=== PATIENT | female | born 1960 | race American Indian/Alaskan Native ===

== ENCOUNTER 2019-02-16 17:43 | Observation (INO) | payer MEDICAID ==
[~2019-02-16] VITALS: Ht 170.2 cm; Wt 98.2 kg
[~2019-02-16 17:43] MED LIST: ASPI-1071 PO; ATOR10TA PO; CLOP75TA35 PO; FURO-149 PO; LANTUS SQ; LISI2.5T2 PO; METO-539 PO; NITR0.4T51 SL
[2019-02-16 18:27] LABS: BASOPHILS # (AUTO) 0.1 X10'3 (0-0.2); EOSINOPHILS # (AUTO) 0.2 X10'3 (0-0.9); EOSINOPHILS % (AUTO) 3.1 % (0-6); HEMATOCRIT 41.6 % (35.0-45.0); HEMOGLOBIN 14.1 g/dl (12.0-16.0); LYMPHOCYTES % (AUTO) 42.5 % (21-51); MEAN CORPUSCULAR HEMOGLOBIN 27.6 PG (27.0-31.0); MEAN CORPUSCULAR HGB CONC 33.9 g/dL (33.0-36.5); MEAN CORPUSCULAR VOLUME 81.4 FL (78-98); MEAN PLATELET VOLUME 8.8 FL (7.4-10.4); MONOCYTES # (AUTO) 0.5 X10'3 (0-0.9); MONOCYTES % (AUTO) 6.5 % (2-12); NEUTROPHILS # (AUTO) 3.3 X10'3 (1.8-7.7); NEUTROPHILS % (AUTO) 46.9 % (42-75); PLATELET COUNT 235 X10'3 (140-440); RED BLOOD COUNT 5.11 X10'6 (4.20-5.60)
[2019-02-16 18:37] LABS: ALANINE AMINOTRANSFERASE 14 U/L (12-78); ALBUMIN 3.7 G/DL (3.4-5.0); ALKALINE PHOSPHATASE 140 IU/L (46-116); ANION GAP 9 (8-16); ASPARTATE AMINO TRANSFERASE 22 U/L (10-37); BILIRUBIN,TOTAL 0.4 MG/DL (0.1-1.0); BLOOD UREA NITROGEN 10 MG/DL (7-18); BUN/CREATININE RATIO 15.4 (6.6-38.0); CALCIUM 9.2 MG/DL (8.5-10.1); CHLORIDE 104 MMOL/L (99-107); CREATININE 0.65 MG/DL (0.40-0.90); GLUCOSE 275 MG/DL (70-104); POTASSIUM 3.6 MMOL/L (3.5-5.1); SODIUM 138 MMOL/L (135-145); TOTAL CARBON DIOXIDE 24.8 MMOL/L (24-32); TOTAL PROTEIN 7.3 G/DL (6.4-8.2); eGFR > 90 ML/MIN
[2019-02-16] MEDS ORDERED: ROSU20TA2 PO (19:03)
[2019-02-16] MEDS ORDERED: EZET10TA13 PO (19:03)
[2019-02-16] MEDS ORDERED: LORazepam 2 mg/ml vial IV ONE (19:05)
[2019-02-16] MEDS ORDERED: CARV-50 PO (19:05)
[2019-02-16] MEDS ORDERED: magnesium 2GM in 50ml NS 50 ML IV PRN (19:35)
[2019-02-16] MEDS ORDERED: magnesium Cl slow-release 64mg tablet PO PRN (19:35)
[2019-02-16] MEDS ORDERED: potassium Cl 40MEQ/NS 500ml 500 ML IV PRN ×2 (19:35)
[2019-02-16] MEDS ORDERED: potassium Cl 20 mEq SR tablet PO PRN ×2 (19:35)
[2019-02-16] MEDS ORDERED: mag hydrox/Alum hydrox/simeth 30ml oral suspension PO PRN (19:35)
[2019-02-16] MEDS ORDERED: nitroGLYCERIN 0.4mg SUBLingual tab SL PRN (19:35)
[2019-02-16] MEDS ORDERED: acetaminophen 325mg tablet PO PRN ×2 (19:35)
[2019-02-16] MEDS ORDERED: magnesium hydroxide 30ml (MOM) UD suspension PO PRN (19:35)
[2019-02-16] MEDS ORDERED: magnesium 4gm in 100ml NS 100 ML IV PRN (19:35)
[2019-02-16] MEDS ORDERED: ondansetron/PF 4mg/2ml inj IV PRN (19:35)
[2019-02-17] MEDS ORDERED: nitroGLYCERIN 0.4mg SUBLingual tab SL PRN (02:00)
[2019-02-17] MEDS ORDERED: regadenoson 0.4mg/5ml syringe IV ONE (02:05)
[2019-02-17] MEDS ORDERED: aminophylline 250mg/10ml inj. IV PRN (02:05)
[2019-02-17] MEDS ORDERED: metoprolol tartrate 1mg/ml inj IV PRN (02:05)
[2019-02-17] MEDS: K and/or MAG REPLACEMENT MC SCH (08:00)
[2019-02-17] MEDS ORDERED: aspirin 325mg tablet, delayed-release (Ecotrin) PO SCH (08:00)
[2019-02-17 08:19] VITALS: BP 125/74
--- NOTE | 2019-02-17 08:39 | NUR ---
Patient accidentally got a food tray with coffee on admit to floor. Pt was aware and npo sign at door. Dr Garcia notified. Would like follow up info
[2019-02-17] MEDS ORDERED: INSU100I31 (09:18)
[2019-02-17] MEDS ORDERED: INSU100I39 (09:18)
[2019-02-17 09:25] LABS: BASOPHILS # (AUTO) 0.1 X10'3 (0-0.2); BASOPHILS % (AUTO) 0.9 % (0-1); EOSINOPHILS # (AUTO) 0.2 X10'3 (0-0.9); EOSINOPHILS % (AUTO) 2.9 % (0-6); HEMATOCRIT 42.4 % (35.0-45.0); HEMOGLOBIN 14.2 g/dl (12.0-16.0); LYMPHOCYTES # (AUTO) 1.8 X10'3 (1.1-4.8); LYMPHOCYTES % (AUTO) 29.3 % (21-51); MEAN CORPUSCULAR HEMOGLOBIN 27.3 PG (27.0-31.0); MEAN CORPUSCULAR HGB CONC 33.5 g/dL (33.0-36.5); MEAN CORPUSCULAR VOLUME 81.3 FL (78-98); MONOCYTES # (AUTO) 0.4 X10'3 (0-0.9); MONOCYTES % (AUTO) 6.5 % (2-12); NEUTROPHILS # (AUTO) 3.6 X10'3 (1.8-7.7); NEUTROPHILS % (AUTO) 60.4 % (42-75); PLATELET COUNT 201 X10'3 (140-440); RED BLOOD COUNT 5.21 X10'6 (4.20-5.60); RED CELL DISTRIBUTION WIDTH 13.8 % (11.5-14.5)
[2019-02-17 10:54] LABS: ALBUMIN 3.5 G/DL (3.4-5.0); ANION GAP 9 (8-16); BLOOD UREA NITROGEN 11 MG/DL (7-18); BUN/CREATININE RATIO 15.5 (6.6-38.0); CALCIUM 8.9 MG/DL (8.5-10.1); CHLORIDE 104 MMOL/L (99-107); CREATININE 0.71 MG/DL (0.40-0.90); GLUCOSE 300 MG/DL (70-104); MAGNESIUM 1.9 MG/DL (1.5-2.4); POTASSIUM 3.8 MMOL/L (3.5-5.1); SODIUM 136 MMOL/L (135-145); TOTAL CARBON DIOXIDE 23.5 MMOL/L (24-32); eGFR 84 ML/MIN
[2019-02-17 11:00] VITALS: BP 108/59
[2019-02-17] MEDS: carVEDilol 12.5mg tablet PO SCH ×2 (13:23→19:51)
[2019-02-17] MEDS: furosemide 40mg tablet PO SCH (13:23)
[2019-02-17] MEDS: clopidogrel 75mg tablet PO SCH (13:23)
[2019-02-17] MEDS: atorvastatin 20mg tablet PO SCH (13:23)
[2019-02-17] MEDS: ezetimibe 10mg tablet PO SCH (13:23)
[2019-02-17] MEDS: enoxaparin 40mg/0.4ml syringe SQ SCH (13:25)
[2019-02-17] MEDS ORDERED: dextrose 50%-water 50ml dispensing syringe IV PRN ×2 (13:35)
[2019-02-17] MEDS ORDERED: glucagon, human recombinant 1mg kit SUBCUT PRN (13:35)
[2019-02-17] MEDS ORDERED: MESSAGE TO PHARMACY PO ONE (13:35)
[2019-02-17] MEDS ORDERED: dextrose ORAL solution 15 GM/59 ML bottle PO PRN ×2 (13:35)
[2019-02-17 13:56] LABS: HEMOGLOBIN A1C 11.3 % (4.5-6.2)
[2019-02-17 15:00] VITALS: BP 121/70
--- NOTE | 2019-02-17 18:10 | NUR ---
Patient in room PCU 3028. I have received report from Kalee HECTOR and had the opportunity to ask questions and assume patient care.
--- NOTE | 2019-02-17 18:24 | NUR ---
Problems reprioritized. Patient report given, questions answered & plan of care reviewed with TAWNY Jeong.
[2019-02-17 19:00] VITALS: BP 109/68
[2019-02-17] MEDS: insulin Lispro (HumaLOG) vial - multi-dose SQ SCH ×2 (19:14→21:12)
[2019-02-17] MEDS ORDERED: insulin glargine (Lantus) pen - multi-dose SQ SCH (21:00)
[2019-02-17 23:00] VITALS: BP 114/67
[2019-02-18] VITALS (12 sets, daily range): BP systolic 91–121; BP diastolic 45–75
[2019-02-18 05:08] LABS: BASOPHILS % (AUTO) 0.7 % (0-1); EOSINOPHILS # (AUTO) 0.3 X10'3 (0-0.9); EOSINOPHILS % (AUTO) 4.6 % (0-6); HEMATOCRIT 41.9 % (35.0-45.0); LYMPHOCYTES % (AUTO) 34.4 % (21-51); MEAN CORPUSCULAR HEMOGLOBIN 27.3 PG (27.0-31.0); MEAN CORPUSCULAR HGB CONC 33.3 g/dL (33.0-36.5); MEAN CORPUSCULAR VOLUME 81.9 FL (78-98); MONOCYTES # (AUTO) 0.4 X10'3 (0-0.9); NEUTROPHILS # (AUTO) 3.1 X10'3 (1.8-7.7); NEUTROPHILS % (AUTO) 53.3 % (42-75); PLATELET COUNT 198 X10'3 (140-440); RED BLOOD COUNT 5.11 X10'6 (4.20-5.60); RED CELL DISTRIBUTION WIDTH 13.9 % (11.5-14.5); WHITE BLOOD COUNT 5.9 X10'3 (4.5-11.0)
[2019-02-18 05:21] LABS: ALBUMIN 3.2 G/DL (3.4-5.0); ANION GAP 8 (8-16); BLOOD UREA NITROGEN 15 MG/DL (7-18); BUN/CREATININE RATIO 20.8 (6.6-38.0); CALCIUM 8.8 MG/DL (8.5-10.1); CHLORIDE 102 MMOL/L (99-107); CREATININE 0.72 MG/DL (0.40-0.90); GLUCOSE 334 MG/DL (70-104); MAGNESIUM 1.9 MG/DL (1.5-2.4); POTASSIUM 3.9 MMOL/L (3.5-5.1); SODIUM 135 MMOL/L (135-145); TOTAL CARBON DIOXIDE 25.1 MMOL/L (24-32); eGFR 83 ML/MIN
--- NOTE | 2019-02-18 06:25 | NUR ---
Problems reprioritized. Patient report given, questions answered & plan of care reviewed with Kareem HECTOR.
--- NOTE | 2019-02-18 06:26 | NUR ---
Patient in room PCU 3028. I have received report from TAWNY Jeong and had the opportunity to ask questions and assume patient care.
[2019-02-18] MEDS ORDERED: aspirin 81mg tablet.DR PO SCH (06:41)
[2019-02-18] MEDS: K and/or MAG REPLACEMENT MC SCH (07:41)
[2019-02-18] MEDS: carVEDilol 12.5mg tablet PO SCH (07:49)
[2019-02-18] MEDS: atorvastatin 20mg tablet PO SCH (07:50)
[2019-02-18] MEDS: clopidogrel 75mg tablet PO SCH (07:50)
[2019-02-18] MEDS: furosemide 40mg tablet PO SCH (07:50)
[2019-02-18] MEDS: ezetimibe 10mg tablet PO SCH (07:50)
[2019-02-18] MEDS: enoxaparin 40mg/0.4ml syringe SQ SCH (07:51)
[2019-02-18] MEDS: insulin Lispro (HumaLOG) vial - multi-dose SQ SCH ×2 (08:00→13:15)
[2019-02-18] MEDS ORDERED: aminophylline inj. 10 ML IV ONE (08:32)
[2019-02-18] MEDS ORDERED: regadenoson 0.4mg/5ml syringe IV ONE ×2 (08:32→08:45)
--- NOTE | 2019-02-18 10:52 | NUR ---
PAGER ID: [phone] MESSAGE: [id number] Carlee Peter: Destini Scan report is up and ready to review. TAWNY Serna Ext [phone]
--- NOTE | 2019-02-18 14:07 | NUR ---
DM Consult: A1C 11.3. Pt admit w/ chest pain s/p stress test. Advanced to carb controlled/heart healthy diet PO 100% prior to test meeting needs. Pt seen by RD for written/verbal DM ed w/ RD contact information provided. Pt reports knowing what to eat but simply doesn't and drinks lots of soda. Pt takes a whopping 150 units of Lantus HS in additional to meal replacement per pt report. Hard to imagine how many carbs pt eats daily to have such a high A1C on such high dose coverage. Pt reports recently lost her mother which has increased non-compliance. RD referred pt to CDE course and encouraged pt to d/w PCP potential for medication adjustments as needed. LBM 02/17. Will continue to monitor. Rec: 1. continue heart healthy/carb controlled diet 2. wt per rx Addendum: 02/18/19 at [address] Amended: Links added.
--- NOTE | 2019-02-18 15:32 | NUR ---
PAGER ID: [phone] MESSAGE: [id number] Carlee Peter I viewed the ECHO report it said EF 40-45%. TAWNY Serna Ext [phone]
--- NOTE | 2019-02-18 15:56 | NUR ---
Discharge order put in at 0900, but Dr Garcia didn't finalize okay until after ECHO report, which came up around 1500.
--- NOTE | 2019-02-18 16:15 | NUR ---
Called to set up follow-up appointment for new CHF diagnoses. Called [facility] per patient who said she sees them. [facility] told me she was now going to see [facility]. [facility] said she was not a patient there. I called Dr Keene's office who Dr Garcia said she would now see as moved. [facility] office said they had a note that patient was booted from their services.
--- NOTE | 2019-02-18 16:30 | NUR ---
PAGER ID: [phone] MESSAGE: [phone] Carlee Peter I called Dr Gallagher [facility] to set up an apt, but according to them they have a note she was kicked off their services, and I had no luck with [facility]. TAWNY Serna Ext [phone]
--- NOTE | 2019-02-18 18:44 | NUR ---
Problems reprioritized. Patient report given, questions answered & plan of care reviewed with TAWNY Jeong. Radha ramachandran for pt to DC with BP of 99 systoilic. Reported to TAWNY Jeong.
--- NOTE | 2019-02-18 20:00 | NUR ---
Discharge plan and paperwork reviewed with patient. All questions answered. All belongings collected and on person. Tele monitor removed and IV taken out with cannula intact. Patient stable enough and walked out with family member. No dizziness.
== END 2019-02-18 20:00 | disposition home or self-care (01) ==
LOC: ER 17:43 → INTOOBSV 19:47 → ED HOLD 19:47 → EDBEDREQ 02-17 04:41 → PCU 3S 02-17 07:52
PROVIDERS: ADMIT Hospitalist; ATTEND Hospitalist
DX: R07.89 Other chest pain (principal); I10 Essential (primary) hypertension; I21.9 Acute myocardial infarction, unspecified; I25.10 Atherosclerotic heart disease of native coronary artery without angina pectoris; E11.9 Type 2 diabetes mellitus without complications; Z86.79 Personal history of other diseases of the circulatory system; Z88.1 Allergy status to other antibiotic agents; Z95.5 Presence of coronary angioplasty implant and graft; Z87.738 Personal history of other specified (corrected) congenital malformations of digestive system; Z85.05 Personal history of malignant neoplasm of liver
CPT/HCPCS: 36415; 71045; 78451; 80048; 80053; 82948; 83036; 83735; 83880; 84484; 85025; 87070; 93005; 93017; 93306; 96372; 96374; 99285; A9500; G0378; J0280; J2060; J1650; J1815

== ENCOUNTER 2021-06-10 18:02 | Inpatient (IN) | payer MEDICAID ==
[~2021-06-10] VITALS: Ht 170.2 cm; Wt 100.0 kg
[~2021-06-10 18:02] MED LIST changes: -ATOR10TA PO; +CARV-50 PO; +CLOP75TA34 PO; -CLOP75TA35 PO; +INSU100I31; +INSU100I39; -LANTUS SQ; -LISI2.5T2 PO; -METO-539 PO; +ROSU20TA2 PO; +ZET10T PO
[2021-06-10] MEDS ORDERED: dexamethasone sod phosphate 10mg/ml inj IV STA (18:04)
[2021-06-10] MEDS ORDERED: normal saline 1000ML IV soln IVB ONE (18:05)
[2021-06-10] MEDS ORDERED: ketorolac tromethamine 15mg/ml inj. IV ONE (18:05)
[2021-06-10] MEDS ORDERED: mag hydrox/Alum hydrox/simeth 30ml oral suspension PO ONE (18:15)
[2021-06-10 18:41] LABS: EOSINOPHILS % (AUTO) 0 % (0-6); HEMOGLOBIN 13.9 g/dl (12.0-16.0); LYMPHOCYTES # (AUTO) 0.6 X10'3 (1.1-4.8); MONOCYTES # (AUTO) 0.5 X10'3 (0-0.9); MONOCYTES % (AUTO) 6.3 % (2-12)
[2021-06-10 18:42] LABS: BASOPHILS % (AUTO) 0.5 % (0-1); HEMATOCRIT 42.2 % (35.0-45.0); MEAN CORPUSCULAR HEMOGLOBIN 28.7 PG (27.0-31.0); MEAN CORPUSCULAR VOLUME 87.2 FL (78-98); MEAN PLATELET VOLUME 8.9 FL (7.4-10.4); NEUTROPHILS # (AUTO) 7.2 X10'3 (1.8-7.7); NEUTROPHILS % (AUTO) 86.2 % (42-75); PLATELET COUNT 133 X10'3 (140-440); RED BLOOD COUNT 4.84 X10'6 (4.20-5.60); RED CELL DISTRIBUTION WIDTH 14.5 % (11.5-14.5); WHITE BLOOD COUNT 8.4 X10'3 (4.5-11.0)
[2021-06-10 18:46] LABS: D-DIMER 0.81 MG/L FEU (0-0.50)
[2021-06-10 18:54] LABS: ALANINE AMINOTRANSFERASE 19 U/L (12-78); ALBUMIN 3.2 G/DL (3.4-5.0); ALBUMIN/GLOBULIN RATIO 0.8 (1.1-1.5); ALKALINE PHOSPHATASE 123 IU/L (46-116); ANION GAP 22 (8-16); ASPARTATE AMINO TRANSFERASE 27 U/L (10-37); BILIRUBIN,TOTAL 0.6 MG/DL (0.1-1.0); BLOOD UREA NITROGEN 14 MG/DL (7-18); BUN/CREATININE RATIO 16.7 (6.6-38.0); C-REACTIVE PROTEIN 11.31 MG/DL (0.0-0.5); CHLORIDE 99 MMOL/L (99-107); CREATININE 0.84 MG/DL (0.40-0.90); GLUCOSE 316 MG/DL (70-104); POTASSIUM 4.8 MMOL/L (3.5-5.1); SODIUM 132 MMOL/L (135-145); TOTAL PROTEIN 7.2 G/DL (6.4-8.2); TROPONIN I < 0.04 NG/ML (0.0-0.05); eGFR 69 ML/MIN
[2021-06-10 18:57] LABS: TOTAL CARBON DIOXIDE 11.1 MMOL/L (24-32)
[2021-06-10] MEDS ORDERED: potassium CL 20mEq in D5-1/2NS 1,000 ML IV PRN ×2 (19:10→21:10)
[2021-06-10] MEDS ORDERED: potassium Cl 40MEQ/1/2NS 520ml 520 ML IV PRN ×4 (19:10→21:10)
[2021-06-10] MEDS ORDERED: sodium phosphate inj. 30 MMOL in dextrose 5%-water 250 ML IV PRN ×2 (19:10→21:10)
[2021-06-10] MEDS ORDERED: insulin regular, human U-100 3ml vial - multi-dose IV PRN (19:10)
[2021-06-10] MEDS ORDERED: sodium phosphate inj. 15 MMOL in dextrose 5%-water 250 ML IV PRN ×2 (19:10→21:10)
[2021-06-10] MEDS ORDERED: Neutra Phos packet PO PRN (19:10)
[2021-06-10] MEDS ORDERED: potassium Cl 20 mEq SR tablet PO PRN ×4 (19:10→21:10)
[2021-06-10 19:47] LABS: PHOSPHORUS 3.6 MG/DL (2.3-4.5)
--- NOTE | 2021-06-10 19:52 | NUR ---
Pt lying in bed, eyes closed. Pt arousable to voice. Pt updated on POC and plan to admit. Pt agreed to plan. Pt remains on O2 3lpm n/c
[2021-06-10] MEDS: K and/or MAG REPLACEMENT MC SCH (20:00)
[2021-06-10] MEDS ORDERED: diphenhydrAMINE 50 mg/ml inj IV PRN (20:50)
[2021-06-10] MEDS ORDERED: HYDROmorphone inj. 0.5 MG/0.5 ML DISP.SYRIN IV PRN (20:50)
[2021-06-10] MEDS ORDERED: HYDROcodone/acetaminophen 5mg/325mg tablet PO PRN (20:50)
[2021-06-10] MEDS ORDERED: morphine 2 MG/ML inj. syringe IV PRN ×2 (20:50)
[2021-06-10] MEDS ORDERED: acetaminophen 325mg tablet PO PRN ×2 (20:50)
[2021-06-10] MEDS ORDERED: diphenhydrAMINE 25mg capsule PO PRN (20:50)
[2021-06-10] MEDS ORDERED: ondansetron 4mg rapidly disintigrating tab PO PRN (20:50)
[2021-06-10] MEDS ORDERED: acetaminophen 650mg rectal suppository RC PRN (20:50)
[2021-06-10] MEDS: normal saline 1000ml 1,000 ML IV SCH ×2 (20:50→21:10)
[2021-06-10] MEDS ORDERED: magnesium hydroxide 30ml (MOM) UD suspension PO PRN (20:50)
[2021-06-10] MEDS ORDERED: bisacodyl 10mg suppository rectal RC PRN (20:50)
[2021-06-10] MEDS ORDERED: mag hydrox/Alum hydrox/simeth 30ml oral suspension PO PRN (20:50)
[2021-06-10] MEDS ORDERED: HYDROcodone/acetaminophen 10/325mg tab PO PRN (20:50)
[2021-06-10] MEDS ORDERED: ondansetron/PF 4mg/2ml inj IV PRN (20:50)
[2021-06-10] MEDS ORDERED: temazepam 15mg capsule PO PRN (21:00)
[2021-06-10 21:01] LABS: ABG BASE EXCESS -16.1 mmol/L (-2.0-2.0); ABG HCO3 8.8 mmol/L (22.0-26.0); ABG OXYGEN SATURATION 97.1 % (94-97); ABG PCO2 (T) 21.5 mmHg (32.0-45.0); ABG PO2 (T) 110.9 mmHg (75.0-100.0); FCOHb 0.6 % (0.0-3.9); FLOW 3 L/min; FMetHb 0.3 % (0.0-1.5); FO2Hb 96.2 % (94-97); PATIENT TEMPERATURE 38.4; TOTAL HEMOGLOBIN 13.8 G/dl (12.0-16.0)
[2021-06-10] MEDS ORDERED: sodium bicarbonate (8.4%) inj. 50 MEQ in dextrose 5% water 500ml 250 ML IV PRN (21:10)
[2021-06-10] MEDS ORDERED: sodium bicarbonate (8.4%) inj. 100 MEQ in dextrose 5% water 500ml 500 ML IV PRN (21:10)
[2021-06-10] MEDS ORDERED: dextrose ORAL solution 15 GM/59 ML bottle PO PRN ×2 (21:30)
[2021-06-10] MEDS ORDERED: glucagon, human recombinant 1mg kit SUBCUT PRN (21:30)
[2021-06-10] MEDS ORDERED: dextrose 50%-water 50ml dispensing syringe IV PRN ×2 (21:30)
[2021-06-10 21:33] LABS: LIPASE 61 U/L (73-393)
[2021-06-10 21:36] LABS: PARTIAL THROMBOPLASTIN TIME 25 SECONDS (22-32)
--- NOTE | 2021-06-10 22:00 | NUR ---
Pt sleeping. + rise and fall of chest noted. Pt has no complaints at this time other than fatigue. VSS.
[2021-06-11] MEDS: Insulin Reg/NS 100units/100mL 100 ML IV SCH ×3 (00:16→17:40)
[2021-06-11] MEDS: insulin regular, human U-100 3ml vial - multi-dose IV PRN ×2 (00:16→01:32)
[2021-06-11] MEDS ORDERED: INSU100I48 SQ (00:35)
[2021-06-11] MEDS ORDERED: NITR0.4T48 (00:35)
[2021-06-11] MEDS ORDERED: ESCI20TA39 PO (00:35)
[2021-06-11] MEDS ORDERED: CARV6.253 PO (00:35)
--- NOTE | 2021-06-11 01:00 | NUR ---
Pt urinated in bed. Bed bath provided and bed linens changed.
[2021-06-11] MEDS: normal saline 1000ml 1,000 ML IV SCH ×7 (01:43→19:19)
[2021-06-11] MEDS: ipratropium/albuterol 3ml nebule NEB SCH ×2 (02:00→11:00)
[2021-06-11 04:05] LABS: BASOPHILS % (AUTO) 0.1 % (0-1); EOSINOPHILS % (AUTO) 0 % (0-6); HEMATOCRIT 40.5 % (35.0-45.0); HEMOGLOBIN 13.3 g/dl (12.0-16.0); LYMPHOCYTES # (AUTO) 0.7 X10'3 (1.1-4.8); LYMPHOCYTES % (AUTO) 8.1 % (21-51); MEAN CORPUSCULAR HEMOGLOBIN 28.6 PG (27.0-31.0); MEAN CORPUSCULAR HGB CONC 32.9 g/dL (33.0-36.5); MEAN CORPUSCULAR VOLUME 86.8 FL (78-98); MEAN PLATELET VOLUME 8.7 FL (7.4-10.4); MONOCYTES # (AUTO) 0.5 X10'3 (0-0.9); MONOCYTES % (AUTO) 5.8 % (2-12); NEUTROPHILS # (AUTO) 7.3 X10'3 (1.8-7.7); PLATELET COUNT 138 X10'3 (140-440); RED BLOOD COUNT 4.66 X10'6 (4.20-5.60); RED CELL DISTRIBUTION WIDTH 14.2 % (11.5-14.5); WHITE BLOOD COUNT 8.5 X10'3 (4.5-11.0)
[2021-06-11 04:27] LABS: ALANINE AMINOTRANSFERASE 13 U/L (12-78); ALBUMIN 2.7 G/DL (3.4-5.0); ALBUMIN/GLOBULIN RATIO 0.7 (1.1-1.5); ALKALINE PHOSPHATASE 103 IU/L (46-116); ANION GAP 21 (8-16); ASPARTATE AMINO TRANSFERASE 28 U/L (10-37); BILIRUBIN,TOTAL 0.4 MG/DL (0.1-1.0); BLOOD UREA NITROGEN 18 MG/DL (7-18); BUN/CREATININE RATIO 19.4 (6.6-38.0); CALCIUM 7.8 MG/DL (8.5-10.1); CHLORIDE 103 MMOL/L (99-107); CHOL/HDL RATIO 5.2 (0.00-4.99); CHOLESTEROL 202 MG/DL (0-200); CREATININE 0.93 MG/DL (0.40-0.90); GLUCOSE 295 MG/DL (70-104); HDL CHOLESTEROL 39 MG/DL (35-60); LDL CHOLESTEROL 151 MG/DL (50-100); POTASSIUM 4.7 MMOL/L (3.5-5.1); SODIUM 136 MMOL/L (135-145); TOTAL PROTEIN 6.8 G/DL (6.4-8.2); TRIGLYCERIDES 102 MG/DL (20-135); eGFR 61 ML/MIN
[2021-06-11 04:29] LABS: TOTAL CARBON DIOXIDE 12.4 MMOL/L (24-32)
[2021-06-11] MEDS ORDERED: azithromycin/NS 500mg/250ml 250 ML IV ONE (05:50)
[2021-06-11] MEDS: docusate sod 100mg capsule PO SCH ×2 (07:56→20:52)
[2021-06-11] MEDS: CefTRIAXone/D5W-Rocephin 1gm 50 ML IV SCH (07:57)
[2021-06-11] MEDS: ESCITALOPRAM OXALATE 5 MG TABLET PO SCH (07:57)
[2021-06-11] MEDS: pantoprazole 40mg Tablet.DR PO SCH (07:58)
[2021-06-11] MEDS: nitroGLYCERIN 0.2mg/hour patch TD SCH (07:58)
[2021-06-11] MEDS: dexamethasone 4mg/ml inj IV SCH ×2 (07:58→20:42)
[2021-06-11] MEDS: carvedilol 6.25mg tablet PO SCH ×2 (07:58→20:52)
[2021-06-11] MEDS: enoxaparin 40mg/0.4ml syringe SUBCUT SCH ×2 (08:00→20:51)
[2021-06-11] MEDS: K and/or MAG REPLACEMENT MC SCH ×2 (08:00→20:00)
[2021-06-11] MEDS ORDERED: K and/or MAG REPLACEMENT MC SCH (08:00)
[2021-06-11] MEDS ORDERED: dexamethasone inj 6 MG in normal saline 50ml IV soln 50 ML IV SCH (08:00)
[2021-06-11] MEDS ORDERED: ESCITALOPRAM OXALATE 5 MG TABLET PO ONE (08:20)
[2021-06-11] MEDS ORDERED: ALBUTEROL INHALER 1 PUFF/90 MCG INHALER IH PRN ×2 (10:05→14:20)
[2021-06-11] MEDS ORDERED: albuterol 2.5 MG/3 ML nebule NEB PRN (10:10)
[2021-06-11] MEDS ORDERED: magnesium 4gm in 100ml NS 100 ML IV PRN (10:10)
[2021-06-11] MEDS ORDERED: magnesium Cl slow-release 64mg tablet PO PRN (10:10)
[2021-06-11] MEDS ORDERED: aspirin 81mg tab.chew PO ONE (10:20)
[2021-06-11] MEDS ORDERED: azithromycin 250mg tablet PO SCH (10:25)
--- NOTE | 2021-06-11 11:12 | NUR ---
pt resting on gurpradip, respiratory was in room. states she feels a little better
[2021-06-11 12:32] LABS: ALBUMIN 2.6 G/DL (3.4-5.0); ANION GAP 13 (8-16); BLOOD UREA NITROGEN 18 MG/DL (7-18); BUN/CREATININE RATIO 23.7 (6.6-38.0); CALCIUM 7.9 MG/DL (8.5-10.1); CHLORIDE 105 MMOL/L (99-107); CREATININE 0.76 MG/DL (0.40-0.90); GLUCOSE 186 MG/DL (70-104); POTASSIUM 4.5 MMOL/L (3.5-5.1); SODIUM 133 MMOL/L (135-145); eGFR 77 ML/MIN
[2021-06-11 12:41] LABS: TOTAL CARBON DIOXIDE 14.6 MMOL/L (24-32)
[2021-06-11] MEDS: atorvastatin 20mg tablet PO SCH (12:48)
--- NOTE | 2021-06-11 13:00 | NUR ---
TC FROM PATIENT'S SON, [id number], AND DAUGHTER, RAZA. CONDITION REPORT GIVEN TO FAMILY MEMBERS.
--- NOTE | 2021-06-11 13:37 | NUR ---
DAUGHTER, KAREY CALLED FOR CONDITION REPORT. CONTACT NUMBER FOR KAREY IS
[2021-06-11 15:15] LABS: CLARITY,URINE SLIGHTLY CLOUDY (Clear); COLOR,URINE YELLOW (Yellow); GLUCOSE, URINE 500 mg/dl (Neg); KETONES,URINE >=80 mg/dl (Neg); LEUKOCYTE ESTERASE ,URINE NEGATIVE (Neg); NITRITES, URINE NEGATIVE (Neg); OCCULT BLOOD,URINE LARGE (Neg); PROTEIN,URINE 30 mg/dl (Neg); UROBILINOGEN,URINE 0.2 E.U/dL (0.2-1.0)
[2021-06-11 15:17] LABS: UA COLLECTION TYPE FOLEY CATH
[2021-06-11] MEDS ORDERED: REMDESIVIR (EUA) 100mg inj. 200 MG in normal saline 100ml IV soln 100 ML IV ONE (15:20)
[2021-06-11] MEDS: Neutra Phos packet PO PRN (15:21)
[2021-06-11 15:30] LABS: FINE GRANULAR CAST 0-3 /LPF (NEGATIVE)
[2021-06-11 15:31] LABS: COARSE GRANULAR CAST 0-3 /LPF (NEGATIVE)
[2021-06-11 15:32] LABS: SQUAMOUS EPITHELIAL CELL,UR FEW /LPF (FEW)
[2021-06-11 15:34] LABS: BACTERIA,URINE FEW /HPF (Neg); RBC,URINE TNTC /HPF (0-2); WBC,URINE 0-4 /HPF (0-4)
--- NOTE | 2021-06-11 17:02 | NUR ---
PAGE SENT TO DR. HERNANDEZ FOR ADDITIONAL ORDERS REGARDING DKA PROTOCOL. AWAITING RESPONSE. PAGER ID: [phone] MESSAGE: DR. HERNANDEZ, PATIENT IN ER BED #12 IS STILL RECEIVING INSULIN DRIP (PER DKA PROTOCOL) BECAUSE HER CO2 IS BELOW 20. HER LAST 2 BG READINGS WERE 185 AND 178. WOULD YOU LIKE THE INSULIN DRIP TO CONTINUE AND HAVE REPEAT LABS THIS DANIELA? PREETI 4999
--- NOTE | 2021-06-11 17:14 | NUR ---
DR. HERNANDEZ IS NOT THE HOSPITALIST FOR THIS PATIENT, DR. ABDALLA IS THE HOSPITALIST TODAY. PAGE SENT TO DR. ABDALLA FOR ADDITIONAL ORDERS, DIRECTION REGARDING INSULIN DRIP MAINTENANCE. PAGER ID: [phone] MESSAGE: DR. ABDALLA, PATIENT IN ER BED #12 IS STILL RECEIVING INSULIN DRIP (PER DKA PROTOCOL) BECAUSE HER CO2 IS BELOW 20. HER LAST 2 BG READINGS WERE 185 AND 178. WOULD YOU LIKE THE INSULIN DRIP TO CONTINUE AND HAVE REPEAT LABS THIS DANIELA? PREETI 1600
--- NOTE | 2021-06-11 17:15 | NUR ---
SON, FAVIO NICHOLE, CALLED IN FOR CONDITION REPORT.
[2021-06-11 18:30] LABS: ALBUMIN 2.4 G/DL (3.4-5.0); ANION GAP 13 (8-16); BLOOD UREA NITROGEN 15 MG/DL (7-18); BUN/CREATININE RATIO 22.7 (6.6-38.0); CHLORIDE 106 MMOL/L (99-107); CREATININE 0.66 MG/DL (0.40-0.90); GLUCOSE 171 MG/DL (70-104); POTASSIUM 4.3 MMOL/L (3.5-5.1); SODIUM 136 MMOL/L (135-145); eGFR > 90 ML/MIN
[2021-06-11 18:35] LABS: HEMOGLOBIN A1C 12.2 % (4.5-6.2)
[2021-06-11] MEDS ORDERED: MESSAGE TO PHARMACY PO ONE (19:00)
[2021-06-11] MEDS ORDERED: dextrose 50%-water 50ml dispensing syringe IV PRN ×2 (19:00)
[2021-06-11] MEDS ORDERED: dextrose ORAL solution 15 GM/59 ML bottle PO PRN ×2 (19:00)
[2021-06-11] MEDS ORDERED: glucagon, human recombinant 1mg kit SUBCUT PRN (19:00)
--- NOTE | 2021-06-11 19:02 | NUR ---
constantin oreilly for updates [phone]
--- NOTE | 2021-06-11 19:04 | NUR ---
constantin oreilly, son, called and requested update. constantin requested to talk to another nurse to "make sure what i said was correct" instructed son that I was the nurse for this patient and informed him i was happy to forward his contact information to hospitalist if he would like to talk with another provider involved with patients care but i would not ask another nurse who was not involved with the patients care to talk with him.
--- NOTE | 2021-06-11 19:17 | NUR ---
patient has requested that we only update Amber Donnelly, daughter, with medical information and to have her be the point of contact for family members. her number is [phone].
[2021-06-11] MEDS: insulin glargine (Lantus) pen - multi-dose SQ SCH (20:02)
[2021-06-11] MEDS: sodium bicarbonate 650mg tablet PO SCH (20:45)
[2021-06-11] MEDS: lactobacillus rhamnosus 10,000 MMU CELLS/CAPSULE PO SCH (20:45)
[2021-06-12] MEDS: normal saline 1000ml 1,000 ML IV SCH ×2 (04:26→13:48)
--- NOTE | 2021-06-12 05:48 | NUR ---
daughter sahara updated on patient condition. all questions answered.
[2021-06-12] MEDS: insulin Lispro (HumaLOG) vial - multi-dose SQ SCH ×2 (06:09→18:46)
[2021-06-12] MEDS: K and/or MAG REPLACEMENT MC SCH ×2 (08:00→20:00)
[2021-06-12 08:17] LABS: BASOPHILS % (AUTO) 0.1 % (0-1); EOSINOPHILS % (AUTO) 0 % (0-6); HEMATOCRIT 41.3 % (35.0-45.0); HEMOGLOBIN 13.7 g/dl (12.0-16.0); LYMPHOCYTES % (AUTO) 8.1 % (21-51); MEAN CORPUSCULAR HEMOGLOBIN 27.9 PG (27.0-31.0); MEAN CORPUSCULAR HGB CONC 33.2 g/dL (33.0-36.5); MEAN CORPUSCULAR VOLUME 83.9 FL (78-98); MEAN PLATELET VOLUME 9.3 FL (7.4-10.4); MONOCYTES # (AUTO) 0.5 X10'3 (0-0.9); MONOCYTES % (AUTO) 4.2 % (2-12); NEUTROPHILS # (AUTO) 10.6 X10'3 (1.8-7.7); NEUTROPHILS % (AUTO) 87.6 % (42-75); PLATELET COUNT 137 X10'3 (140-440); RED BLOOD COUNT 4.92 X10'6 (4.20-5.60); RED CELL DISTRIBUTION WIDTH 14.4 % (11.5-14.5); WHITE BLOOD COUNT 12.1 X10'3 (4.5-11.0)
[2021-06-12 08:36] LABS: ALANINE AMINOTRANSFERASE 15 U/L (12-78); ALBUMIN 2.6 G/DL (3.4-5.0); ALBUMIN/GLOBULIN RATIO 0.7 (1.1-1.5); ALKALINE PHOSPHATASE 107 IU/L (46-116); ANION GAP 15 (8-16); ASPARTATE AMINO TRANSFERASE 24 U/L (10-37); BILIRUBIN,TOTAL 0.4 MG/DL (0.1-1.0); BLOOD UREA NITROGEN 20 MG/DL (7-18); BUN/CREATININE RATIO 27.8 (6.6-38.0); C-REACTIVE PROTEIN 3.76 MG/DL (0.0-0.5); CALCIUM 7.7 MG/DL (8.5-10.1); CHLORIDE 105 MMOL/L (99-107); CREATININE 0.72 MG/DL (0.40-0.90); D-DIMER 0.59 MG/L FEU (0-0.50); GLUCOSE 315 MG/DL (70-104); LACTATE DEHYDROGENASE 223 U/L (81-234); MAGNESIUM 2.2 MG/DL (1.5-2.4); PHOSPHORUS 3.4 MG/DL (2.3-4.5); POTASSIUM 4.6 MMOL/L (3.5-5.1); SODIUM 136 MMOL/L (135-145); TOTAL CARBON DIOXIDE 15.9 MMOL/L (24-32); TOTAL PROTEIN 6.4 G/DL (6.4-8.2); eGFR 82 ML/MIN
[2021-06-12] MEDS: dexamethasone 4mg/ml inj IV SCH (09:40)
[2021-06-12] MEDS: REMDESIVIR (EUA) 100mg inj. 100 MG in normal saline 100ml IV soln 100 ML IV SCH (09:40)
[2021-06-12] MEDS: CefTRIAXone/D5W-Rocephin 1gm 50 ML IV SCH (09:40)
[2021-06-12] MEDS: pantoprazole 40mg Tablet.DR PO SCH (09:40)
[2021-06-12] MEDS: azithromycin 250mg tablet PO SCH (09:42)
[2021-06-12] MEDS: carvedilol 6.25mg tablet PO SCH ×2 (09:42→20:22)
[2021-06-12] MEDS: aspirin 81mg tab.chew PO SCH (09:42)
[2021-06-12] MEDS: docusate sod 100mg capsule PO SCH ×2 (09:42→20:22)
[2021-06-12] MEDS: sodium bicarbonate 650mg tablet PO SCH ×3 (09:43→20:21)
[2021-06-12] MEDS: lactobacillus rhamnosus 10,000 MMU CELLS/CAPSULE PO SCH ×2 (09:43→20:21)
[2021-06-12] MEDS: nitroGLYCERIN 0.2mg/hour patch TD SCH (09:43)
[2021-06-12] MEDS: atorvastatin 20mg tablet PO SCH (09:43)
[2021-06-12] MEDS: enoxaparin 40mg/0.4ml syringe SUBCUT SCH ×2 (09:44→20:22)
[2021-06-12] MEDS: ESCITALOPRAM OXALATE 5 MG TABLET PO SCH (09:44)
[2021-06-12] MEDS: insulin glargine (Lantus) pen - multi-dose SQ SCH (20:20)
--- NOTE | 2021-06-13 01:00 | NUR ---
PT SLEEPING, IN NO DISTRESS.
[2021-06-13] MEDS: normal saline 1000ml 1,000 ML IV SCH ×3 (01:09→21:46)
--- NOTE | 2021-06-13 04:00 | NUR ---
PT FUSE CUTTER LIGHT, ALERT, ORIENTED, REQUESTING ICED TEA SHE IS EDUCATED ON TIME AND WILL WAIT FOR BREAKFAST. NO OTHER NEEDS AT THIS TIME.
[2021-06-13 07:40] VITALS: BP 116/68
[2021-06-13 08:38] LABS: BASOPHILS % (AUTO) 0.1 % (0-1); EOSINOPHILS % (AUTO) 0 % (0-6); LYMPHOCYTES # (AUTO) 1.1 X10'3 (1.1-4.8); LYMPHOCYTES % (AUTO) 12.4 % (21-51); MEAN CORPUSCULAR HEMOGLOBIN 28.2 PG (27.0-31.0); MEAN CORPUSCULAR HGB CONC 33.3 g/dL (33.0-36.5); MEAN CORPUSCULAR VOLUME 84.9 FL (78-98); MEAN PLATELET VOLUME 9.4 FL (7.4-10.4); MONOCYTES # (AUTO) 0.5 X10'3 (0-0.9); MONOCYTES % (AUTO) 6.4 % (2-12); NEUTROPHILS # (AUTO) 6.9 X10'3 (1.8-7.7); NEUTROPHILS % (AUTO) 81.1 % (42-75); PLATELET COUNT 131 X10'3 (140-440); RED CELL DISTRIBUTION WIDTH 14.1 % (11.5-14.5); WHITE BLOOD COUNT 8.5 X10'3 (4.5-11.0)
[2021-06-13] MEDS: K and/or MAG REPLACEMENT MC SCH ×2 (08:40→20:00)
[2021-06-13 08:45] LABS: ALANINE AMINOTRANSFERASE 10 U/L (12-78); ALBUMIN 2.4 G/DL (3.4-5.0); ALBUMIN/GLOBULIN RATIO 0.7 (1.1-1.5); ALKALINE PHOSPHATASE 84 IU/L (46-116); ANION GAP 14 (8-16); ASPARTATE AMINO TRANSFERASE 20 U/L (10-37); BILIRUBIN,TOTAL 0.5 MG/DL (0.1-1.0); BLOOD UREA NITROGEN 20 MG/DL (7-18); BUN/CREATININE RATIO 31.3 (6.6-38.0); CALCIUM 7.6 MG/DL (8.5-10.1); CHLORIDE 105 MMOL/L (99-107); CREATININE 0.64 MG/DL (0.40-0.90); GLUCOSE 310 MG/DL (70-104); POTASSIUM 4.2 MMOL/L (3.5-5.1); SODIUM 137 MMOL/L (135-145); TOTAL CARBON DIOXIDE 18.3 MMOL/L (24-32); TOTAL PROTEIN 5.8 G/DL (6.4-8.2); eGFR > 90 ML/MIN
[2021-06-13 08:56] LABS: C-REACTIVE PROTEIN 1.76 MG/DL (0.0-0.5); MAGNESIUM 2.1 MG/DL (1.5-2.4); PHOSPHORUS 2.3 MG/DL (2.3-4.5)
[2021-06-13 09:23] LABS: D-DIMER 0.42 MG/L FEU (0-0.50)
[2021-06-13 10:00] VITALS: BP 125/68
[2021-06-13] MEDS: insulin Lispro (HumaLOG) vial - multi-dose SQ SCH ×4 (10:48→21:44)
[2021-06-13] MEDS: pantoprazole 40mg Tablet.DR PO SCH (10:55)
[2021-06-13] MEDS: REMDESIVIR (EUA) 100mg inj. 100 MG in normal saline 100ml IV soln 100 ML IV SCH (10:55)
[2021-06-13] MEDS: docusate sod 100mg capsule PO SCH ×2 (10:55→21:15)
[2021-06-13] MEDS: carvedilol 6.25mg tablet PO SCH ×2 (10:56→21:15)
[2021-06-13] MEDS: aspirin 81mg tab.chew PO SCH (10:56)
[2021-06-13] MEDS: azithromycin 250mg tablet PO SCH (10:56)
[2021-06-13] MEDS: sodium bicarbonate 650mg tablet PO SCH ×3 (10:56→21:15)
[2021-06-13] MEDS: atorvastatin 20mg tablet PO SCH (10:56)
[2021-06-13] MEDS: nitroGLYCERIN 0.2mg/hour patch TD SCH (10:57)
[2021-06-13] MEDS: lactobacillus rhamnosus 10,000 MMU CELLS/CAPSULE PO SCH ×2 (10:57→21:15)
[2021-06-13] MEDS: enoxaparin 40mg/0.4ml syringe SUBCUT SCH ×2 (10:58→21:16)
[2021-06-13] MEDS: dexamethasone 4mg/ml inj IV SCH (10:59)
[2021-06-13] MEDS: CefTRIAXone/D5W-Rocephin 1gm 50 ML IV SCH (12:51)
[2021-06-13] MEDS: ESCITALOPRAM OXALATE 5 MG TABLET PO SCH (12:51)
--- NOTE | 2021-06-13 13:21 | NUR ---
Initial: Pt admit DX COVID-19 PNA, DKA now resolved hx T2DM A1C 12.2 GLU 290 down from 382 on admit, CHF exacerbation, HTN, and CAD per EMR. PO 75% carbs initial meals however rest of PO documentation pending at this time. RD d/w RN who reports pt is stable enough for TC to review DM ed at this time. Written DM ed w/ RD contact information given to pt via RN this AM. RD attempted to contact pt via TC though no answer at this time; would benefit from further verbal reinforcement this admit. Will continue to monitor for further PO trends and additional protein/kcal needs this admit given DX. Rec: 1. continue carb controlled/vegetarian diet per pt preference 2. monitor for ONS needs 3. routine bowel care 4. scaled wt this admit; subsequent weekly wts Addendum: 06/13/21 at [address] Amended: Links added.
[2021-06-13 18:00] VITALS: BP 108/62
[2021-06-13] MEDS: insulin glargine (Lantus) pen - multi-dose SQ SCH (21:42)
[2021-06-13 21:52] VITALS: BP 126/70
[2021-06-14 01:10] VITALS: BP 117/76
--- NOTE | 2021-06-14 06:25 | NUR ---
Report to Amita HECTOR.
--- NOTE | 2021-06-14 06:28 | NUR ---
Patient in room ORTHO 4006. I have received report from TAWNY Ho and had the opportunity to ask questions and assume patient care.
[2021-06-14 06:29] VITALS: BP 127/81
[2021-06-14 06:46] LABS: D-DIMER 0.38 MG/L FEU (0-0.50)
[2021-06-14 06:56] LABS: BASOPHILS % (AUTO) 0.2 % (0-1); EOSINOPHILS % (AUTO) 0 % (0-6); HEMATOCRIT 39.6 % (35.0-45.0); HEMOGLOBIN 13.6 g/dl (12.0-16.0); LYMPHOCYTES # (AUTO) 1.3 X10'3 (1.1-4.8); LYMPHOCYTES % (AUTO) 24.6 % (21-51); MEAN CORPUSCULAR HEMOGLOBIN 28.4 PG (27.0-31.0); MEAN CORPUSCULAR HGB CONC 34.2 g/dL (33.0-36.5); MEAN PLATELET VOLUME 9.4 FL (7.4-10.4); MONOCYTES # (AUTO) 0.5 X10'3 (0-0.9); NEUTROPHILS # (AUTO) 3.5 X10'3 (1.8-7.7); NEUTROPHILS % (AUTO) 66.2 % (42-75); PLATELET COUNT 131 X10'3 (140-440); RED BLOOD COUNT 4.77 X10'6 (4.20-5.60); RED CELL DISTRIBUTION WIDTH 13.9 % (11.5-14.5); WHITE BLOOD COUNT 5.3 X10'3 (4.5-11.0)
[2021-06-14 07:01] LABS: ALANINE AMINOTRANSFERASE 15 U/L (12-78); ALBUMIN 2.5 G/DL (3.4-5.0); ALBUMIN/GLOBULIN RATIO 0.7 (1.1-1.5); ALKALINE PHOSPHATASE 103 IU/L (46-116); ANION GAP 10 (8-16); ASPARTATE AMINO TRANSFERASE 17 U/L (10-37); BILIRUBIN,TOTAL 0.6 MG/DL (0.1-1.0); BLOOD UREA NITROGEN 9 MG/DL (7-18); BUN/CREATININE RATIO 19.1 (6.6-38.0); C-REACTIVE PROTEIN 0.89 MG/DL (0.0-0.5); CALCIUM 7.4 MG/DL (8.5-10.1); CHLORIDE 104 MMOL/L (99-107); CREATININE 0.47 MG/DL (0.40-0.90); GLUCOSE 236 MG/DL (70-104); LACTATE DEHYDROGENASE 172 U/L (81-234); MAGNESIUM 2.1 MG/DL (1.5-2.4); PHOSPHORUS 1.9 MG/DL (2.3-4.5); POTASSIUM 3.7 MMOL/L (3.5-5.1); SODIUM 138 MMOL/L (135-145); TOTAL CARBON DIOXIDE 24.5 MMOL/L (24-32); TOTAL PROTEIN 5.9 G/DL (6.4-8.2); eGFR > 90 ML/MIN
[2021-06-14] MEDS: aspirin 81mg tab.chew PO SCH (07:06)
[2021-06-14] MEDS: enoxaparin 40mg/0.4ml syringe SUBCUT SCH (07:06)
[2021-06-14] MEDS: lactobacillus rhamnosus 10,000 MMU CELLS/CAPSULE PO SCH (07:06)
[2021-06-14] MEDS: docusate sod 100mg capsule PO SCH (07:06)
[2021-06-14] MEDS: ESCITALOPRAM OXALATE 5 MG TABLET PO SCH (07:06)
[2021-06-14] MEDS: pantoprazole 40mg Tablet.DR PO SCH (07:07)
[2021-06-14] MEDS: sodium bicarbonate 650mg tablet PO SCH (07:07)
[2021-06-14] MEDS: carvedilol 6.25mg tablet PO SCH (07:08)
[2021-06-14] MEDS: nitroGLYCERIN 0.2mg/hour patch TD SCH (07:08)
[2021-06-14] MEDS: atorvastatin 20mg tablet PO SCH (07:08)
[2021-06-14] MEDS: azithromycin 250mg tablet PO SCH (07:08)
[2021-06-14] MEDS: dexamethasone 4mg/ml inj IV SCH (07:08)
[2021-06-14] MEDS: CefTRIAXone/D5W-Rocephin 1gm 50 ML IV SCH (07:10)
[2021-06-14] MEDS: K and/or MAG REPLACEMENT MC SCH (08:00)
[2021-06-14] MEDS: Neutra Phos packet PO PRN ×2 (08:35→13:46)
[2021-06-14] MEDS: REMDESIVIR (EUA) 100mg inj. 100 MG in normal saline 100ml IV soln 100 ML IV SCH (08:35)
[2021-06-14] MEDS: insulin Lispro (HumaLOG) vial - multi-dose SQ SCH ×2 (08:38→13:44)
[2021-06-14 10:00] VITALS: BP 104/65
[2021-06-14 10:15] VITALS: BP 104/65
[2021-06-14] MEDS ORDERED: AMA1T PO (10:42)
[2021-06-14] MEDS ORDERED: LACT1CAP26 PO (10:42)
[2021-06-14] MEDS ORDERED: DEXA6TAB PO (10:42)
[2021-06-14] MEDS ORDERED: METF-950 PO (10:42)
[2021-06-14] MEDS ORDERED: LINA5TAB4 PO (10:42)
[2021-06-14] MEDS ORDERED: ATOR20TA66 PO (10:42)
[2021-06-14] MEDS ORDERED: PANT40TA54 PO (10:42)
[2021-06-14] MEDS ORDERED: ASPI81TA53 PO (10:42)
--- NOTE | 2021-06-14 13:53 | NUR ---
DM Consult "pro": AYAD attempted to contact pt via TC but no answer. Pt has been provided w/ written DM handout and RD contact information already. Will monitor for DM reinforcement needs and remain available if pt questions/concerns. Addendum: 06/14/21 at [address] Amended: Links added.
--- NOTE | 2021-06-14 15:00 | NUR ---
Patient discharged to home with son via private vehicle. Prescriptions sent and called into [facility] on [address]. Educated patient on importance of monitoring blood sugars and correcting high sugars with insulin especially while on steroid therapy. Also discussed to not stop taking steroid abruptly, s/s of PE/DVT and when to seek emergency medical assistance. 20 gauge piv field start removed from right hand, cannula intact, bilateral 20 gauge PIVs removed from antecubitals, cannula intact. Discharged via wheelchair with no complications.
[2021-06-15] MEDS ORDERED: enoxaparin 40mg/0.4ml syringe SUBCUT SCH (08:00)
== END 2021-06-14 14:57 | disposition home or self-care (01) | DRG 137 ==
LOC: ER 18:02 → ED HOLD 20:49 → ORTHO 4S 06-13 07:25
PROVIDERS: ADMIT Family Medicine; ATTEND Family Medicine
PROC: CB121ZZ Planar Nuclear Medicine Imaging of Lungs and Bronchi using Technetium 99m (Tc-99m) (ICD-10-PCS; 2021-06-10)
PROC: XW033E5 Introduction of Remdesivir Anti-infective into Peripheral Vein, Percutaneous Approach, New Technology Group 5 (ICD-10-PCS; principal; 2021-06-11)
DX: U07.1 COVID-19 (principal); J96.00 Acute respiratory failure, unspecified whether with hypoxia or hypercapnia; J12.82 Pneumonia due to coronavirus disease 2019; E11.10 Type 2 diabetes mellitus with ketoacidosis without coma; I11.0 Hypertensive heart disease with heart failure; D69.6 Thrombocytopenia, unspecified; E87.0 Hyperosmolality and hypernatremia; E78.5 Hyperlipidemia, unspecified; I50.23 Acute on chronic systolic (congestive) heart failure; I25.10 Atherosclerotic heart disease of native coronary artery without angina pectoris; J22 Unspecified acute lower respiratory infection; F32.9 Major depressive disorder, single episode, unspecified; I25.2 Old myocardial infarction; Z79.4 Long term (current) use of insulin; Z88.3 Allergy status to other anti-infective agents; Z95.1 Presence of aortocoronary bypass graft; Z95.5 Presence of coronary angioplasty implant and graft; Z88.8 Allergy status to other drugs, medicaments and biological substances; Z79.899 Other long term (current) drug therapy; Z83.3 Family history of diabetes mellitus; Z80.9 Family history of malignant neoplasm, unspecified; Z79.82 Long term (current) use of aspirin; Z91.19 Patient's noncompliance with other medical treatment and regimen
CPT/HCPCS: 36415; 36600; 71045; 71250; 78580; 80048; 80053; 80061; 81001; 82803; 82948; 83036; 83605; 83615; 83690; 83735; 83880; 84100; 84145; 84443; 84484; 85018; 85025; 85379; 85610; 85651; 85730; 86140; 87081; 93005; 94760; 96361; 96374; 96375; 99285; A9540; G0378; J0456; J0696; J1100; J1650; J1815; J1885; J3480; J7030

== ENCOUNTER 2021-11-21 10:50 | Outpatient (CLI) | payer MEDICAID ==
[~2021-11-21 10:50] MED LIST changes: -ASPI-1071 PO; +ASPI81TA53 PO; +ATOR20TA66 PO; -CARV-50 PO; +CARV6.253 PO; -CLOP75TA34 PO; +DEXA6TAB PO; +ESCI20TA39 PO; -FURO-149 PO; -INSU100I31; -INSU100I39; +INSU100I48 SQ; +LACT1CAP26 PO; +LINA5TAB4 PO; +NITR0.4T48; -NITR0.4T51 SL; +PANT40TA54 PO; -ROSU20TA2 PO; -ZET10T PO
[2021-11-21] MEDS ORDERED: INSU100I31 SQ (11:28)
[2021-11-21] MEDS ORDERED: ASPI-1265 PO (11:28)
[2021-11-21] MEDS ORDERED: ATOR20TA66 PO (11:28)
[2021-11-21] MEDS ORDERED: LISI2.5T14 PO (11:28)
[2021-11-21] MEDS ORDERED: GLIM4TAB7 PO (11:28)
[2021-11-21 11:46] LABS: BASOPHILS % (AUTO) 0.6 % (0-1); EOSINOPHILS # (AUTO) 0.2 X10'3 (0-0.9); EOSINOPHILS % (AUTO) 3.7 % (0-6); LYMPHOCYTES # (AUTO) 1.9 X10'3 (1.1-4.8); LYMPHOCYTES % (AUTO) 32.7 % (21-51); MEAN CORPUSCULAR HGB CONC 33.8 g/dL (33.0-36.5); MEAN CORPUSCULAR VOLUME 82.9 FL (78-98); MEAN PLATELET VOLUME 8.4 FL (7.4-10.4); MONOCYTES # (AUTO) 0.4 X10'3 (0-0.9); MONOCYTES % (AUTO) 6.1 % (2-12); NEUTROPHILS # (AUTO) 3.3 X10'3 (1.8-7.7); NEUTROPHILS % (AUTO) 56.9 % (42-75); PRE OP HEMOGLOBIN 14.6 g/dL (12.0-16.0); PRE OP PLATELET COUNT 212 X10'3 (140-440); RED BLOOD COUNT 5.19 X10'6 (4.20-5.60)
[2021-11-21 11:56] LABS: ALBUMIN 3.6 G/DL (3.4-5.0); ALKALINE PHOSPHATASE 152 IU/L (46-116); BLOOD UREA NITROGEN 15 MG/DL (7-18); CALCIUM 9.1 MG/DL (8.5-10.1); CHLORIDE 105 MMOL/L (99-107); CREATININE 0.79 MG/DL (0.40-0.90); PRE OP ALT 12 U/L (30-65); PRE OP ANION GAP 10 (8-16); PRE OP AST 14 U/L (10-37); PRE OP BILIRUB, TOTAL 0.5 MG/DL (0.0-1.0); PRE OP POTASSIUM 4.6 MMOL/L (3.4-5.1); PRE OP SODIUM 137 MMOL/L (135-145); TOTAL CARBON DIOXIDE 21.7 MMOL/L (24-32); TOTAL PROTEIN 7.1 G/DL (6.4-8.2); eGFR 74 ML/MIN
[2021-11-21 11:58] LABS: PRE OP GLUCOSE 355 MG/DL (70-104)
== END 2021-11-21 23:59 | disposition home or self-care (01) ==
LOC: PRE-OP 10:50 → EDSTATUS 11-27 07:30 → LAB 11-27 12:00
PROVIDERS: ATTEND Orthopaedic Surgery
DX: Z01.818 Encounter for other preprocedural examination (principal); M75.32 Calcific tendinitis of left shoulder; M75.22 Bicipital tendinitis, left shoulder; M75.42 Impingement syndrome of left shoulder; M19.019 Primary osteoarthritis, unspecified shoulder; I10 Essential (primary) hypertension; E11.9 Type 2 diabetes mellitus without complications; E66.9 Obesity, unspecified; Z68.34 Body mass index [BMI] 34.0-34.9, adult; Z98.890 Other specified postprocedural states; Z20.822 Contact with and (suspected) exposure to COVID-19; Z95.5 Presence of coronary angioplasty implant and graft; Z98.51 Tubal ligation status; Z87.891 Personal history of nicotine dependence; Z86.16 Personal history of COVID-19; Z88.8 Allergy status to other drugs, medicaments and biological substances; Z79.899 Other long term (current) drug therapy; Z79.82 Long term (current) use of aspirin; Z79.4 Long term (current) use of insulin
CPT/HCPCS: 36415; 80053; 85025; U0003; U0005